=== PATIENT | female | born 1955 | race Caucasian/White ===

== ENCOUNTER → 2025-01-11 | Outpatient (CLI) | payer MEDICARE ==
[~2025-01-11] MED LIST: PROHANCE 279.3MG/ML 15ML VIAL ONE; PROHANCE 279.3MG/ML 5ML VIAL ONE
== END ==
LOC: M PLAIMG 10:22
PROVIDERS: ATTEND Nurse Practitioner Family
DX: C41.9 Malignant neoplasm of bone and articular cartilage, unspecified (principal); D49.6 Neoplasm of unspecified behavior of brain; Z98.890 Other specified postprocedural states; J32.2 Chronic ethmoidal sinusitis; G31.9 Degenerative disease of nervous system, unspecified; M50.21 Other cervical disc displacement, high cervical region; M46.02 Spinal enthesopathy, cervical region; M48.02 Spinal stenosis, cervical region; M47.812 Spondylosis without myelopathy or radiculopathy, cervical region
CPT/HCPCS: 70553; 72156; A9576